=== PATIENT | female | born 1985 | race Two or more races ===

== ENCOUNTER 2016-08-03 16:11 | Inpatient (IN) | payer OTHER ==
[~2016-08-03] VITALS: Ht 165.1 cm; Wt 102.5 kg
[2016-08-03] MEDS ORDERED: PRENATAL VITAMI1 TA2 PO (16:28)
[2016-08-03 16:43] VITALS: BP 145/88
[2016-08-03] MEDS: LABETALOL 100 MG TAB PO SCH (21:04)
[2016-08-03] MEDS ORDERED: LABETALOL 100 MG TAB ONE (21:07)
[2016-08-03] MEDS ORDERED: MICRONASE5 MG PO (22:19)
[2016-08-03] MEDS ORDERED: TRANDATE200 M1 PO (22:19)
[2016-08-04] MEDS ORDERED: LABETALOL 100 MG TAB ONE ×2 (08:59→21:16)
--- NOTE | 2016-08-04 09:10 | NUR ---
PATIENT HAS BEEN SCREENED AND CATEGORIZED LOW NUTRITION RISK. PATIENT WILL BE SEEN WITHIN 7 DAYS OF ADMISSION. 08/10/[address]
[2016-08-04] MEDS ORDERED: PROMETHAZINE 25 MG/ML VIAL IVP PRN (13:00)
[2016-08-04] MEDS ORDERED: NALBUPHINE HYDROCHLORIDE 10 MG/ML VIAL IVP PRN (13:00)
[2016-08-04] MEDS ORDERED: OXYTOCIN 10 UNITS/ML VIAL IM SCH (13:04)
[2016-08-04] MEDS ORDERED: MISOPROSTOL 25 MCG TAB VG SCH (16:00)
[2016-08-04] MEDS: LACTATED RINGERS 1,000 ML IV SCH ×2 (19:59→23:37)
[2016-08-04] MEDS ORDERED: MISOPROSTOL 25 MCG TAB ONE (21:00)
[2016-08-04] MEDS: LABETALOL 100 MG TAB PO SCH (21:13)
[2016-08-04] MEDS ORDERED: MAG SULF 20 GM/H2O PREMIX DRIP 500 ML IV PRN (23:25)
[2016-08-04] MEDS ORDERED: MAG SULF 20 GM/H2O PREMIX DRIP 500 ML IV SCH (23:25)
[2016-08-04] MEDS ORDERED: ROPIVACAINE 0.2%/NS PREMIX 250 ML EPI ONE (23:42)
[2016-08-04] MEDS ORDERED: MAG SULF 2000 MG/WATER PREMIX 100 ML IV SCH (23:45)
[2016-08-04] MEDS ORDERED: ROPIVACAINE 0.2%/NS PREMIX 250 ML EPI SCH (23:55)
[2016-08-05] MEDS ORDERED: MAG SULF 20 GM/H2O PREMIX DRIP 500 ML IV ONE ×3 (01:01→20:51)
[2016-08-05] MEDS: MAG SULF 20 GM/H2O PREMIX DRIP 500 ML IV SCH ×4 (01:02→20:50)
[2016-08-05] MEDS: LACTATED RINGERS 1,000 ML IV SCH ×2 (05:10→09:53)
[2016-08-05] MEDS ORDERED: LABETALOL 100 MG TAB ONE (09:04)
[2016-08-05] MEDS: LABETALOL 100 MG TAB PO SCH (09:04)
[2016-08-05] MEDS ORDERED: OXYTOCIN 20 UNITS/LR PREMIX 1,000 ML IV ONE (09:33)
[2016-08-05] MEDS ORDERED: LIDOCAINE 1% 500 MG/50 ML VIAL INJ SCH (18:40)
[2016-08-05] MEDS ORDERED: OXYTOCIN 10 UNITS/ML VIAL ONE (18:47)
[2016-08-05] MEDS ORDERED: LIDOCAINE 1% 50 ML ONE (18:47)
[2016-08-05] MEDS ORDERED: LABETALOL 100 MG/20 ML VIAL ONE (18:50)
[2016-08-05] MEDS ORDERED: OXYTOCIN 20 UNITS/LR PREMIX 1,000 ML IV SCH (19:46)
[2016-08-05] MEDS ORDERED: BISACODYL 5 MG TABEC PO PRN (19:50)
[2016-08-05] MEDS ORDERED: ACETAMINOPHEN 325 MG TAB PO PRN (19:50)
[2016-08-05] MEDS ORDERED: MEASLES, MUMPS, AND RUBELLA 1 VIAL SQVAC PRN (19:50)
[2016-08-05] MEDS ORDERED: LABETALOL 200 MG TAB ONE (20:49)
[2016-08-05] MEDS: LABETALOL 200 MG TAB PO SCH (20:54)
[2016-08-05] MEDS: oxyCODONE/APAP 5/325 MG 1 TAB TAB PO PRN (21:25)
[2016-08-05] MEDS ORDERED: oxyCODONE/APAP 5/325 MG 1 TAB TAB ONE (21:28)
[2016-08-06] MEDS: oxyCODONE/APAP 5/325 MG 1 TAB TAB PO PRN (05:13)
[2016-08-06] MEDS ORDERED: oxyCODONE/APAP 5/325 MG 1 TAB TAB ONE (05:17)
[2016-08-06] MEDS ORDERED: LABETALOL 200 MG TAB ONE (08:53)
[2016-08-06] MEDS: LABETALOL 200 MG TAB PO SCH (20:55)
[2016-08-07] MEDS: oxyCODONE/APAP 5/325 MG 1 TAB TAB PO PRN ×2 (01:34→21:21)
[2016-08-07] MEDS: LABETALOL 200 MG TAB PO SCH ×2 (09:48→21:14)
== END 2016-08-07 23:00 | disposition home or self-care (01) | DRG 560 ==
LOC: OBSVTOIN 16:11 → MLD 16:11 → MFCC 20:44 → MLD 08-04 21:49 → MFCC 08-06 14:12
PROVIDERS: ADMIT Obstetrics & Gynecology; ATTEND Obstetrics & Gynecology
PROC: 10E0XZZ Delivery of Products of Conception, External Approach (ICD-10-PCS; principal; 2016-08-05)
PROC: 10907ZC Drainage of Amniotic Fluid, Therapeutic from Products of Conception, Via Natural or Artificial Opening (ICD-10-PCS; 2016-08-05)
PROC: 3E0P7GC Introduction of Other Therapeutic Substance into Female Reproductive, Via Natural or Artificial Opening (ICD-10-PCS; 2016-08-05)
PROC: 3E0S3CZ (ICD-10-PCS; 2016-08-05)
PROC: 00HU33Z Insertion of Infusion Device into Spinal Canal, Percutaneous Approach (ICD-10-PCS; 2016-08-05)
PROC: 3E0234Z Introduction of Serum, Toxoid and Vaccine into Muscle, Percutaneous Approach (ICD-10-PCS; 2016-08-07)
DX: O13.4 Gestational [pregnancy-induced] hypertension without significant proteinuria, complicating childbirth (principal); O41.03X0 Oligohydramnios, third trimester, not applicable or unspecified; O24.429 Gestational diabetes mellitus in childbirth, unspecified control; E66.9 Obesity, unspecified; O99.214 Obesity complicating childbirth; Z3A.38 38 weeks gestation of pregnancy; Z37.0 Single live birth; Z23 Encounter for immunization; Z68.38 Body mass index [BMI] 38.0-38.9, adult